=== PATIENT | male | born 1945 | race Caucasian/White ===

== ENCOUNTER 2018-09-28 20:04 | Emergency (ER) | payer OTHER ==
[~2018-09-28] VITALS: Ht 182.9 cm; Wt 86.2 kg
[2018-09-28] MEDS ORDERED: CARVEDILOL3.125 MG PO (20:19)
[2018-09-28] MEDS ORDERED: ELIQUIS5 MG PO (20:20)
[2018-09-28] MEDS ORDERED: LUNESTA3 MG PO (20:20)
[2018-09-28] MEDS ORDERED: TYLENOL EXTRA500 MG PO (20:30)
[2018-09-28 22:51] VITALS: BP 143/88
== END 2018-09-28 22:52 | disposition home or self-care (01) ==
LOC: ER 20:04
DX: S70.02XA Contusion of left hip, initial encounter (principal); G89.29 Other chronic pain; M54.9 Dorsalgia, unspecified; Z95.0 Presence of cardiac pacemaker; Z88.8 Allergy status to other drugs, medicaments and biological substances; W01.198A Fall on same level from slipping, tripping and stumbling with subsequent striking against other object, initial encounter; Y92.89 Other specified places as the place of occurrence of the external cause; Y93.89 Activity, other specified; Y99.8 Other external cause status

== ENCOUNTER → 2018-10-01 | Outpatient (CLI) | payer OTHER ==
[~2018-10-01] MED LIST: CARVEDILOL3.125 MG PO; ELIQUIS5 MG PO; LUNESTA3 MG PO; TYLENOL EXTRA500 MG PO
== END ==
LOC: CAT 13:47
DX: M16.12 Unilateral primary osteoarthritis, left hip (principal); K57.30 Diverticulosis of large intestine without perforation or abscess without bleeding; K40.20 Bilateral inguinal hernia, without obstruction or gangrene, not specified as recurrent; Z96.641 Presence of right artificial hip joint